=== PATIENT | female | born 1995 | race Caucasian/White ===

== ENCOUNTER 2022-05-01 03:28 | Inpatient (IN) ==
[2022-05-01] MEDS ORDERED: SODIUM CHLORIDE 0.9% 250 ML IV PRN (04:36)
[2022-05-01 05:02] LABS: Hematocrit (blood only) 32.8 % (34.1-44.9); Hemoglobin 11.4 g/dl (12.0-16.0); Mean Corpuscular Hgb Conc 34.8 g/dL (32.0-36.0); Mean Corpuscular Volume 92.1 fL (80.0-100.0); Mean Platelet Volume 10.6 fL (9.4-12.3); Platelet Count 199 K/uL (130-400); RDW Coefficient of Variation 12.1 % (11.5-14.5); RDW Standard Deviation 40.9 fL (36.4-46.3); Red Blood Count 3.56 M/uL (3.93-5.22); White Blood Count 14.08 K/ul (4.8-10.8)
[2022-05-01] MEDS ORDERED: LIDOCAINE 1% LOCAL 20 ML VIAL ONE (05:03)
[2022-05-01] MEDS ORDERED: LACTATED RINGER'S 1,000 ML IV PRN (05:21)
[2022-05-01] MEDS ORDERED: OXYTOCIN 30 UNITS/500 ML BAG IV PRN ×2 (05:21→05:31)
[2022-05-01] MEDS ORDERED: ACETAMINOPHEN 325 MG TAB PO PRN (05:31)
[2022-05-01] MEDS ORDERED: oxyCODONE/ACETAMINOPHEN 5mg/325mg TAB PO PRN (05:31)
[2022-05-01] MEDS ORDERED: DIPHTHERIA/TETANUS/PERTUSSIS 0.5 ML SYR/VIAL IM ONE (05:31)
[2022-05-01] MEDS ORDERED: HYDROCORTISONE ACETATE 25 MG SUPP PR PRN (05:31)
[2022-05-01] MEDS ORDERED: IBUPROFEN 600 MG TAB PO PRN (05:31)
[2022-05-01] MEDS ORDERED: BENZOCAINE 20% AER SPR 82.5 GM CAN EXT PRN (05:31)
--- NOTE | 2022-05-01 05:35 | History & Physical Report ---
Date of Service May 01, 2022 Assessment & Plan (1) 27 weeks gestation of : (2) labor: (3) Vaginal bleeding in : (4) No care in current : Plan Patient was admitted. stat labs drawn. monson placed. peds called and vaginal delivery planned. anesth made aware. 2 iv sites obtained. blood readied. pt and partner told of need for delivery due to labor and variable decels. planned to try to wait to arom until peds arrived as delivery would be imminent thereafter. they verbalized understanding. this was urgent situation and pt readied for such. Admission and Anticipated Discharge Date Admission Date: May 01, 2022 History of Present Illness Chief Complaint: contractions and bleeding Primary Care Provider: NO PCP Late entry 26yo at 27+wks hansel presents to with above cc. 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 No known u/s or labs previously done. dated by her LMP and regular cycles. She notes onset of contractions at 230am today followed pretty quickly by vaginal bleeding and presented to [facility], driven to hospital by their neighbor. Notes painful ctx on arrival. No formal u/s as mentioned. No health problems, no surgery. No known issues with . Spouse at bedside. PNC c/b no formal care. PNL unknown. Home Medications Medication Instructions Recorded Confirmed Type [id number]-[id number]-[id number] 1 mg 1 tab PO DAILY 05/01/22 05/01/22 History tablet Patient History Medical History (Updated 05/01/22 @ 05:32 by Fiona Kerns MD, FACOG) No known health problems Surgical History (Updated 05/01/22 @ 04:10 by Rebecca Joe, RN) No history of previous surgery Family History (Updated 05/01/22 @ 04:10 by Rebecca Joe, GEOVANNA) Other No known health problems Social History Smoking Status: Never smoker Hx Alcohol Use: No Hx Substance Use: No Preferred Language: [place] marital status: Feels Safe at Home: Yes Review of Systems as per Subjective / HPI Physical Exam Constitutional: WD/WN, vitals as above Gastrointestinal (Abdomen): soft gravid nt Musculoskeletal: no edema nontender calves Neurologic: grossly normal Psychiatric: A+Ox3, euthymic affect Genitourinary: OB Exam Abdomen: + vertex (by u/s. placenta appears right lateral, no seemingly LLP or previa) Manual OB Exam: + cervical dilation 9 cm, + cervical effacement 100% and + station -2 OB Exam Monitor Tracing: + external FHT monitor used, + external uterine monitor used (q3), + category II and + variable decelerations Results & Data ([facility]) Vital Signs (Past 12 Hours) Vital Signs Temp Pulse Resp BP 05/01/22 03:45 99.1 F 18 05/01/22 05:15 87 112/77 05/01/22 03:43 83 122/78 Code Status & VTE Plan VTE Prophylaxis Plan VTE Prophylaxis will be ordered: No Coding Level of Care Code 91234 Initial Inpt Care Lvl 3 Diagnoses 27 weeks gestation of Z3A.27 labor O60.00 Vaginal bleeding in O46.90 No care in current O09.30 Comment not sure if unassigned, no care with us, if i should do admit billing.
[2022-05-01 05:38] LABS: Base Excess Cord Arterial Bld -7.4 mEq/L (-9-1.8); CO2 Cord Arterial Blood 52 mmHg (39.1-73.5); HCO3 Cord Arterial Blood 21 mmol/L (19.7-28.5); Oxygen Sat Cord Arterial Blood < 60.0 % (<60); PO2 Cord Arterial Blood 29 mmHg (4.1-31.7); pH Cord Arterial Blood 7.21 (7.1-7.38)
[2022-05-01 05:39] LABS: Base Excess Cord Venous Blood -4.8 mEq/L (-7.7-1.9); Cord Venous Blood HCO3 22 mmol/L (18.4-26.8); Cord Venous Blood PCO2 47 mmHg (30.4-57.2); Cord Venous Blood PO2 31 mmHg (14.1-43.3); Cord Venous Blood pH 7.28 (7.20-7.44); O2 Saturation Cord Venous Bld 61.9 % (<68)
--- NOTE | 2022-05-01 05:41 | Delivery Summary ---
Vaginal Delivery Summary Date of Service May 01, 2022 Vaginal Delivery Summary Patient completely dilated with forebag. Deep variables with contractions with recovery to baseline and good variability. Was able to await peds arrival and once they were ready, arom with finger cot with fundal pressure with clear fluid. Wilcox removed. Patient began to push and in approximately 10min delivered viable male, apgars pending, via with double nuchal cord noted after rapid delivery of body. 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 Infant did make attempt at cry at . Cord gases and cord blood obtained. Placenta already coming into vagina and delivered with ease. Hemostasis achieved with dilute pit and uterine massage. Cervix and sulci intact. Bilateral labial lacerations reapproximated after 1% local lidocaine anesthesia with 4-0 vicryl. EBL 200cc. Mother stable in recovery. Unclear if placenta partially abrupted but a portion was in the vagina quickly after with no traction on cord. Explained circumstances of delivery to couple. Behavioral Scientist with baby in nursery. [facility] Vaginal Delivery Charge Delivery Type Details:
[2022-05-01] MEDS ORDERED: Patient's ALLERGY Info needs ENTERED SCH (05:45)
[2022-05-01 05:46] LABS: Rubella IgG Ab Non Immune (Immune)
[2022-05-01] MEDS ORDERED: OXYTOCIN 20 UNITS in LACTATED RINGER'S 1,000 ML IV SCH (06:30)
[2022-05-01 06:35] LABS: Appearance Urine Cloudy (Clear); Bacteria Urine Automated Negative (Negative); Bilirubin Urine Negative (Negative); Blood Urine 2+ (Negative); Color Urine Yellow; Epithelial Cell Urine Auto >30 /lpf (0-5); Glucose Urine UA Negative (Negative); Ketones Urine Negative (Negative); Leukocyte Esterase Urine Negative (Negative); Nitrite Urine Negative (Negative); Protein Urine Negative (Negative); Specific Gravity Urine 1.016 (1.000-1.030); Urobilinogen Urine Negative (Negative)
[2022-05-01] MEDS ORDERED: PRENATAL VITAMIN 1 TAB PO SCH (08:00)
[2022-05-01] MEDS: DOCUSATE SODIUM 100 MG CAP PO SCH ×2 (09:30→20:15)
--- NOTE | 2022-05-02 05:42 | Obstetrical Progress Note ---
Date of Service May 02, 2022 Assessment & Plan (1) delivery (maternal condition): Plan pt doing well, stable for dc home. plans to go to [facility] as baby in nicu there. instructions reviewed. rec f/u 6wk pp check. discussed her ptd and ? etiologies, needs mmr but otherwise nothing glaringly obvious as cause but reminded her about poss uterine anomalies as cause and can plan u/s pelvis after pp check to evaluate for that possibility. she verbalized understanding. she is made aware that some of her labs are pending. hgb being drawn now. have rec cont pnv with iron for at least 6wks and duration of nursing. Day #:: 1 Subjective Ambulation: ambulating normally Voiding: no voiding problems Diet Tolerance:: regular diet Lochia:: Small Feeding Type:: breast feeding (pumping) no pain complaints. no bleeding concerns. baby in [place] at [facility]. plans to go there today after stopping at her home to pack some things. has plan to stay at [facility] Constitutional: + as per Subjective / HPI Physical Exam Constitutional WD/WN, vitals as above Respiratory normal respiratory effort, lungs clear to auscultation Cardiovascular Rate/Rhythm: regular rate and regular rhythm Gastrointestinal (Abdomen) Inspection/Auscultation: abdomen normal to inspection Percussion/Palpation: abdomen soft Fundus firm 2cm down Musculoskeletal nt calves no edema Neurologic grossly normal Psychiatric A+Ox3, euthymic affect Results & Data ([facility]) Vital Signs (Past 12 Hours) Vital Signs Temp Pulse Pulse Resp BP BP Pulse Ox 05/02/22 04:30 97.7 F 81 18 103/70 100 05/02/22 00:30 98.1 F 56 L 16 106/67 98 05/01/22 20:05 97.7 F 61 16 103/67 100 O2 Del Method 05/02/22 04:30 Room Air 05/02/22 00:30 Room Air 05/01/22 20:05 Room Air
[2022-05-02 06:01] LABS: Hemoglobin 11.2 g/dl (12.0-16.0); Mean Corpuscular Hemoglobin 31.8 pg (25.0-34.0); Mean Corpuscular Volume 90.9 fL (80.0-100.0); Platelet Count 215 K/uL (130-400); RDW Coefficient of Variation 12.3 % (11.5-14.5); RDW Standard Deviation 40.6 fL (36.4-46.3); Red Blood Count 3.52 M/uL (3.93-5.22); White Blood Count 9.79 K/ul (4.8-10.8)
[2022-05-03 05:23] LABS: HBSAG NON-REACTIVE (NON-REACTIVE)
== END 2022-05-02 07:37 | disposition home or self-care (01) | DRG 807 ==
LOC: OPB 03:28 → 4S1 03:31 → 4E2 08:10